=== PATIENT | female | born 1985 | race Caucasian/White ===

== ENCOUNTER 2019-02-14 12:54 | Emergency (ER) | payer OTHER ==
[~2019-02-14] VITALS: Ht 157.5 cm; Wt 60.3 kg
[2019-02-14] MEDS ORDERED: CELEBREX100 MG PO (23:25)
== END 2019-02-15 00:07 ==
LOC: ER 12:54
DX: K62.5 Hemorrhage of anus and rectum (principal); N83.291 Other ovarian cyst, right side

== ENCOUNTER 2024-05-09 16:02 | Emergency (ER) | payer OTHER ==
[~2024-05-09] VITALS: Ht 157.5 cm; Wt 56.7 kg
[~2024-05-09 16:02] MED LIST: CELEBREX100 MG PO
[2024-05-09] MEDS ORDERED: ACETAMINOPHEN 500 MG GEL..CAP PO ONE ×2 (16:55→17:00)
[2024-05-09] MEDS ORDERED: GUAIFENESIN/DEXTROMETHORPHAN 10ML BLIST.PACK PO ONE (17:00)
[2024-05-09] MEDS ORDERED: DEXAMETHASONE SODIUM PHOSPHATE 4 MG/ML VIAL IM ONE (17:00)
[2024-05-09] MEDS ORDERED: DEXAMETHASONE SODIUM PHOSPHATE 4 MG/ML VIAL ONE (17:07)
[2024-05-09] MEDS ORDERED: GUAIFEN/DEXTROMETHORPHAN/PE 10 ML BLIST.PACK PO ONE (17:07)
[2024-05-09 17:30] LABS: HEMATOCRIT 31.3 % (36.0-45.00); HEMOGLOBIN 9.7 g/dL (12.0-15.00); MEAN CORPUSCULAR HEMOGLOBIN 20.8 pg (27.00-32.0); MEAN CORPUSCULAR HGB CONC 31.1 g/dl (32.0-36.0); PLATELET COUNT 393 K/uL (150-450); RED BLOOD COUNT 4.67 M/uL (4.00-6.00); RED CELL DISTRIBUTION WIDTH 16.3 % (11.5-14.5)
[2024-05-09] MEDS ORDERED: XOPENEX CO1.25 MG/0. IH (18:47)
[2024-05-09] MEDS ORDERED: ZITHROMAX500 MG PO (18:47)
[2024-05-09] MEDS ORDERED: TUSNEL LIQUID178 ML PO (18:47)
== END 2024-05-09 18:58 | disposition home or self-care (01) ==
LOC: ER 16:03
PROVIDERS: General Practice
DX: U07.1 COVID-19 (principal); J06.9 Acute upper respiratory infection, unspecified